=== PATIENT | male | born 1980 | race Caucasian/White ===

== ENCOUNTER 2016-11-17 10:58 | Emergency (ER) | payer OTHER ==
[2016-11-17 12:11] VITALS: BP 108/62; PULSE 77; RESP 14; TEMP 97.9
--- NOTE | 2016-11-17 13:24 | ED ---
ENT HPI - General Chief complaint: Dental/Oral Stated complaint: dental pain Time Seen by Provider: 11/17/16 13:23 Source: patient, RN notes reviewed, old records reviewed Mode of arrival: ambulatory Limitations: no limitations - History of Present Illness Initial comments: Patient is a 36-year-old male with chief complaint of breaking his front tooth yesterday when his child hit his mouth. He also reports that he has history of present patient is planning to see a dental clinic. He states his and multiple dental abscess past. Patient reports that he is searching for antibiotics and pain medication as whenever he is eating or having any over the tooth it does cause some pain and irritation whenever there is over it. He denies any fever or chills or unable to open or close jaw.Patient denies any recent fever, chills , shortness of breath, chest pain, back pain, abdominal pain, nausea vomiting, numbness or tingling, dysuria or hematuria, constipation or diarrhea, headaches or visual changes, or any other current symptoms - Related Data Home Medications Medication Instructions Recorded Confirmed Ibuprofen [Motrin] 200 - 400 mg PO Q6HR PRN 11/17/16 11/17/16 Previous Rx's Medication Instructions Recorded HYDROcodone/APAP 5-325MG [[place] 1 tab PO Q6HR PRN #10 tab 11/17/16 5-325] Penicillin V Potassium [Pen Vee K] 500 mg PO QID #40 tab 11/17/16 Allergies Allergy/AdvReac Type Severity Reaction Status Date / Time Coconut Allergy Unknown Verified 11/17/16 13:34 codeine Allergy Unknown Verified 11/17/16 13:34 Childhood pineapple Allergy Unknown Verified 11/17/16 13:34 Review of Systems ROS Statement: Those systems with pertinent positive or pertinent negative responses have been documented in the HPI. ROS Other: All systems not noted in ROS Statement are negative. Past Medical History Past Medical History: No Reported History History of Any Multi-Drug Resistant Organisms: None Reported Past Surgical History: Adenoidectomy, Tonsillectomy Additional Past Surgical History / Comment(s): soft palate surgery as child Past Psychological History: No Psychological Hx Reported Smoking Status: Current every day smoker Past Alcohol Use History: Rare Past Drug Use History: None Reported General Exam - General Exam Comments Initial Comments: Well-appearing 36-year-old male. No acute distress. Limitations: no limitations General appearance: alert, in no apparent distress Head exam: Present: atraumatic, normocephalic, normal inspection Eye exam: Present: normal appearance, PERRL, EOMI. Absent: scleral icterus, conjunctival injection, periorbital swelling ENT exam: Present: normal exam, mucous membranes moist, TM's normal bilaterally. Absent: normal oropharynx (Patient has poor dentition. Patient is missing multiple teeth. Patient reports that he has a chipped tooth #8. Patient has relatively no teeth over the lower jaw.) Neck exam: Present: normal inspection. Absent: tenderness, meningismus, lymphadenopathy Respiratory exam: Present: normal lung sounds bilaterally. Absent: respiratory distress, wheezes, rales, rhonchi, stridor Cardiovascular Exam: Present: regular rate, normal rhythm, normal heart sounds. Absent: systolic murmur, diastolic murmur, rubs, gallop, clicks GI/Abdominal exam: Present: soft, normal bowel sounds. Absent: distended, tenderness, guarding, rebound, rigid Extremities exam: Present: normal inspection, full ROM, normal capillary refill. Absent: tenderness, pedal edema, joint swelling, calf tenderness Back exam: Present: normal inspection Neurological exam: Present: alert, oriented X3, CN II-XII intact Psychiatric exam: Present: normal affect, normal mood Skin exam: Present: warm, dry, intact, normal color. Absent: rash Course Vital Signs 11/17/16 11/17/16 12:07 13:42 Temperature 97.9 F 97.9 F Pulse Rate 77 77 Respiratory 14 14 Rate Blood Pressure 108/62 108/62 O2 Sat by Pulse 98 98 Oximetry Medical Decision Making - Medical Decision Making Patient is a 36-year-old male with a history of poor dentition presenting with an acute onset of dental pain. His daughter hit him in the mouth. Patient is missing multiple teeth and teeth that he does have a follow-up dental caries. Patient family over tooth #8. I will discharge patient with Pen-Vee K and instructed prescription for pain medicine. Information on the dental clinic. Patient understands the treatment plan will comply. Return parameters were discussed. Disposition Clinical Impression: Pain, dental Disposition: HOME SELF-CARE Condition: Good Instructions: Dental Caries (ED) Additional Instructions: [facility] [address] [place] [address] [phone] (existing clients only) For new clients: [phone] 1st consult: $50 (includes Xrays) Usually 30% less then private dentist for visits after. [employer] Have to pay $50 for Xrays anmd rest is covered. [phone] Prescriptions: HYDROcodone/APAP 5-325MG [[place] 5-325] 1 tab PO Q6HR PRN #10 tab PRN Reason: Pain Penicillin V Potassium [Pen Vee K] 500 mg PO QID #40 tab Referrals: Sulma Pulido MD [STAFF PHYSICIAN] - 1-2 days Time of Disposition: 13:24
== END 2016-11-17 13:42 | disposition home or self-care (01) ==
LOC: EC 10:58
DX: K02.9 Dental caries, unspecified (principal); K03.81 Cracked tooth; F17.200 Nicotine dependence, unspecified, uncomplicated; Z88.5 Allergy status to narcotic agent
CPT/HCPCS: 99283

== ENCOUNTER 2020-11-15 04:37 | Emergency (ER) | payer OTHER ==
[2020-11-15 04:54] VITALS: BP 128/72; PULSE 85; RESP 16; TEMP 97.8
[2020-11-15] MEDS ORDERED: IBUPROFEN 400 MG TAB PO STA (05:55)
--- NOTE | 2020-11-15 05:56 | ED ---
Back Pain HPI - General Chief Complaint: Back Pain/Injury Stated Complaint: [facility]-back pain Time Seen by Provider: 11/15/20 05:48 Source: patient, EMS Limitations: no limitations - History of Present Illness MD Complaint: back injury -: hour(s) Similar Symptoms Previously: No Place: work Radiation: none Severity: moderate Quality: aching Consistency: constant Improves With: immobilization Worsens With: movement Context: turning/twisting Associated Symptoms: denies other symptoms - Related Data Home Medications Medication Instructions Recorded Confirmed Ibuprofen [Motrin] 200 - 400 mg PO Q6HR PRN 11/17/16 11/17/16 Previous Rx's Medication Instructions Recorded HYDROcodone/APAP 5-325MG [[place] 1 tab PO Q6HR PRN #10 tab 11/17/16 5-325] Penicillin V Potassium [Pen Vee K] 500 mg PO QID #40 tab 11/17/16 Ibuprofen [Motrin] 600 mg PO Q8HR PRN #20 tab 11/15/20 Methocarbamol [Robaxin-750] 750 mg PO TID PRN #30 tablet 11/15/20 Allergies Allergy/AdvReac Type Severity Reaction Status Date / Time Coconut Allergy Unknown Verified 11/17/16 13:34 codeine Allergy Unknown Verified 11/17/16 13:34 Childhood pineapple Allergy Unknown Verified 11/17/16 13:34 Review of Systems ROS Statement: Those systems with pertinent positive or pertinent negative responses have been documented in the HPI. ROS Other: All systems not noted in ROS Statement are negative. Constitutional: Denies: fever, chills Respiratory: Denies: cough, dyspnea Cardiovascular: Denies: chest pain Gastrointestinal: Denies: abdominal pain, vomiting, diarrhea, constipation Genitourinary: Denies: dysuria, hematuria, testicular pain, testicular mass Musculoskeletal: Reports: as per HPI, back pain Neurological: Denies: weakness, numbness, paresthesias Past Medical History Past Medical History: No Reported History History of Any Multi-Drug Resistant Organisms: None Reported Past Surgical History: Adenoidectomy, Tonsillectomy Additional Past Surgical History / Comment(s): soft palate surgery as child Past Psychological History: No Psychological Hx Reported Smoking Status: Current every day smoker Past Alcohol Use History: Rare Past Drug Use History: None Reported General Exam Limitations: no limitations General appearance: alert, in no apparent distress Head exam: Present: atraumatic, normocephalic Respiratory exam: Present: normal lung sounds bilaterally. Absent: respiratory distress, wheezes, rales, rhonchi, stridor Cardiovascular Exam: Present: regular rate, normal rhythm, normal heart sounds. Absent: systolic murmur, diastolic murmur, rubs, gallop GI/Abdominal exam: Present: soft. Absent: distended, tenderness, guarding, rebound, rigid, mass Extremities exam: Present: normal inspection, normal capillary refill. Absent: pedal edema, calf tenderness Back exam: Present: normal inspection, tenderness, muscle spasm, paraspinal tenderness (Right paraspinal muscle tenderness and spasm upper lumbar). Absent: CVA tenderness (R), CVA tenderness (L), vertebral tenderness Neurological exam: Present: alert, reflexes normal. Absent: motor sensory deficit Skin exam: Present: warm, dry, intact, normal color. Absent: rash Course Vital Signs 11/15/20 04:51 Temperature 97.8 F Pulse Rate 85 Respiratory 16 Rate Blood Pressure 128/72 O2 Sat by Pulse 93 L Oximetry Disposition Clinical Impression: Strain of lumbar region Disposition: HOME SELF-CARE Condition: Good Instructions (If sedation given, give patient instructions): Acute Low Back Pain (ED) Prescriptions: Ibuprofen [Motrin] 600 mg PO Q8HR PRN #20 tab PRN Reason: Pain Methocarbamol [Robaxin-750] 750 mg PO TID PRN #30 tablet PRN Reason: pain Is patient prescribed a controlled substance at d/c from ED?: No Referrals: None,Stated [Primary Care Provider] - 1-2 days
== END 2020-11-15 06:14 | disposition home or self-care (01) ==
LOC: EC 04:37
DX: S39.012A Strain of muscle, fascia and tendon of lower back, initial encounter (principal); F17.200 Nicotine dependence, unspecified, uncomplicated; Z79.1 Long term (current) use of non-steroidal anti-inflammatories (NSAID); X58.XXXA Exposure to other specified factors, initial encounter
CPT/HCPCS: 99283